=== PATIENT | female | born 2000 | race Caucasian/White ===

== ENCOUNTER 2018-03-01 02:03 | Emergency (ER) | payer OTHER, MEDICAID, SELFPAY ==
[2018-03-01 02:30] VITALS: BP 130/80; PULSE 119; RESP 20; TEMP 36.9; O2SAT 100
--- NOTE | 2018-03-01 02:47 | PC.NURSE ---
Pt has multiple skin lesion in visible areas.
[2018-03-01] MEDS: ACETAMINOPHEN 325 MG TABLET 650 MG PO (03:47)
[2018-03-01] MEDS: AMOXICILLIN/CLAV 875/125 MG 1 TAB PO (03:47)
--- NOTE | 2018-03-01 04:21 | ED_ITS ---
HPI - URI/Sore Throat General Chief Complaint: Upper Respiratory Symptoms Stated Complaint: BAD COUGH, SWELLING ON NECK Time Seen by Provider: 03/01/18 03:33 Source: patient Mode of arrival: ambulatory Limitations: no limitations History of Present Illness HPI Narrative: The patient developed pain and swelling to her chin 2 days ago. She has multiple dry skin lesions with eschar formation on her face. With the swelling, there is no drainage from the site. She has no intraoral swelling or pain. She does complain of left upper dental pain. She has no difficulty opening her mouth or swallowing. She denies associated fever or chills. She tells me that the skin lesions are from anxiety and scratching/ picking. She he has no chronic skin condition. She is currently 6 months . She has no associated chest pain or dyspnea. Related Data Previous Rx's Medication Instructions Recorded sertraline 100 mg tablet 100 mg PO Q DAY #30 tab 07/18/17 amoxicillin-pot clavulanate 1 tab PO Q12H #14 tab 03/01/18 [Augmentin] Allergies Allergy/AdvReac Type Severity Reaction Status Date / Time No Known Drug Allergies Allergy Verified 03/01/18 02:44 Review of Systems Review of Systems All systems reviewed & are unremarkable except as noted in HPI and below Constitutional Denies chills, Denies fever(s), Denies lethargy and Denies weakness Eyes Denies change in vision, Denies eye discharge, Denies irritation and Denies loss of vision ENT Ears, Nose, Mouth, and Throat: Reports as per HPI, Denies change in voice, Reports dental pain, Denies dysphagia, Denies lip swelling, Denies mouth lesions , Denies neck pain and Denies sore throat Cardiovascular Denies chest pain, Denies lightheadedness, Denies palpitations, Denies dyspnea and Denies dyspnea on exertion Respiratory Denies cough, Denies dyspnea, Denies dyspnea on exertion and Denies wheezing Gastrointestinal Gastrointestinal: Denies dysphagia Musculoskeletal Denies neck pain Integumentary/Breasts Reports as per HPI, Denies pruritus, Denies erythema, Denies rash and Reports wounds Neurologic Denies loss of vision and Denies weakness Endocrine Denies palpitations Allergic/Immunologic Denies lip swelling and Denies wheezing [facility] Surgical History Status post delivery (08/17/15) Family History Child Hydrocephaly Mother Age: 42 Fibromyalgia Grandmother Age: 62 Stroke Sister Age: 11 ADHD (attention deficit hyperactivity disorder) Social History Smoking Status: Current every day smoker Exam Initial Vital Signs Initial Vital Signs: Vital Signs Temperature 98.4 F 03/01/18 02:30 Pulse Rate 119 H 03/01/18 02:30 Respiratory Rate 20 03/01/18 02:30 Blood Pressure 130/80 03/01/18 02:30 Pulse Oximetry 100 03/01/18 02:30 Const General: cooperative and well developed Nutritional Appearance: well nourished Orientation: alert, awake, oriented x3 and not confused HENMT Head: normocephalic and other ( Multiple scars on her cheeks, and chin. Submandibular swelling with tenderness. There is slight erythema over the site. There is no induration or fluctuance at the site. There is no pore suggesting as external cyst. . ) Mouth: other ( There is no sublingual tenderness or mass. I cannot express saliva from The sublingual glands. oropharynx is otherwise clear.) Neck Neck: No anterior neck swelling and No lymphadenopathy Resp Effort & Inspection: normal respiratory effort, able to speak in complete sentences, no respiratory distress and no use of accessory muscles Auscultation: clear to auscultation bilaterally, no rales, no rhonchi and no wheezes Cardio Rate: regular rate Rhythm: regular rhythm Heart Sounds: no click, no gallops, no murmurs and no rubs Pulses: normal peripheral pulses Skin General: other ( Multiple skin lesions on her face as noted. Erythema on the chin, at the site of the swelling and discomfort.) Course Orders Ordered: Discontinued Medications Acetaminophen (Tylenol) 650 mg PO NOW ONE Stop: 03/01/18 03:42 Last Admin: 03/01/18 03:47 Dose: 650 mg Amoxicillin/Clavulanate Potassium (Augmentin 875-125 Mg) 1 tab PO NOW ONE Stop: 03/01/18 03:42 Last Admin: 03/01/18 03:47 Dose: 1 tab Vital Signs - 8 hr 03/01/18 02:30 Temperature 98.4 F Pulse Rate 119 H Respiratory Rate 20 Blood Pressure 130/80 Pulse Oximetry 100 MDM - URI/Sore Throat MDM Narrative Medical decision making narrative: Exam is most consistent with cellulitis. There is no induration or fluctuance consistent with an abscess. There is no saliva extracted from the site, that would be consistent with a sublingual salivary gland blockage. Discharge Plan Departure Patient Disposition: Home Clinical Impression: Cellulitis of chin Instructions: DI for Cellulitis -- Adult Activity Restrictions/Additional Instructions: apply warm compresses to the site several times daily until improving. Augmentin 1 tablet twice a day as prescribed. Take Tylenol as needed for pain every 4 hr. If not improving within 48 hr, return to the ER. If the site become significantly worse, more swollen, return to the ER. Prescriptions: New amoxicillin-pot clavulanate [Augmentin] 875-125 mg tablet 1 tab PO Q12H Qty: 14 RF: 0 No Action sertraline [Zoloft] 100 mg tablet 100 mg PO Q DAY Qty: 30 RF: 2
[2018-03-01 04:33] VITALS: BP 129/75; PULSE 124; RESP 18; O2SAT 99
== END 2018-03-01 04:33 | disposition home or self-care (01) ==
PROVIDERS: Emergency Provider Emergency Medicine; PCP Internal Medicine
DX: L03.211 Cellulitis of face (principal)
CPT/HCPCS: 99282; 99283

== ENCOUNTER 2021-09-13 10:24 | Emergency (ER) | payer OTHER, MEDICAID, SELFPAY ==
[2021-09-13 10:39] VITALS: BP 122/76; PULSE 101; RESP 15; TEMP 36.2; O2SAT 100; BMI 19.8
--- NOTE | 2021-09-13 13:01 | ED_ITS ---
HPI - Dental/Oral <STACIE Yepez - Last Filed: 09/13/21 14:38> General Chief complaint: Dental/Oral Stated complaint: possible infected tooth/sinus infection Time Seen by Provider: 09/13/21 12:13 Source: patient Mode of arrival: Ambulatory History of Present Illness HPI Narrative: This is a 21-year-old female who presents to the emergency department complaining of worsening dental and gum infection over the last three weeks. Patient states that she was seen at [facility] in the past and told that she needs extensive oral surgery. She came here for evaluation of infection, states that she has an appointment next month but fears that her mouth is getting worse. She has an active methamphetamine user, also endorses that it zaragoza when she voids. She endorses having a mildly sore throat with oral and gum swelling with pain. She states it is hard to swallow pills and request of liquid medication due to the poor state of health in her mouth. Patient denies any known STDs but states is possible, she states that she feels hot and cold, is financially insecure and food is scarce. Patient denies any recent antibiotics, states that she has been trying to only use liquid food and medicine because it is painful to chew. Related Data Previous Rx's Medication Instructions Recorded sertraline 100 mg tablet (Zoloft) 100 mg PO Q DAY #30 tabs 07/18/17 amoxicillin 600 mg-potassium 7.3 ml PO BID dental infection 7 09/13/21 clavulanate 42.9 mg/5 mL oral days #125 mL suspension (Augmentin ES-) chlorhexidine gluconate 0.12 % 15 ml buccal DAILY gingivitis #473 09/13/21 mouthwash mL naproxen 250 mg tablet 250 mg PO BID PRN pain #14 tabs 09/13/21 Allergies Allergy/AdvReac Type Severity Reaction Status Date / Time No Known Drug Allergies Allergy Verified 09/13/21 10:42 Review of Systems <STACIE Yepez - Last Filed: 09/13/21 14:38> Review of Systems Narrative: General: denies fever, chills Head/Neck: denies headache, neck pain Eyes: denies visual changes, eye pain Mouth: Endorses significant decay, gum infection, dental pain with only partial teeth left Cardio: denies chest pain, palpitations Respiratory: denies shortness of breath, cough GI: denies abdominal pain, nausea, vomiting, or diarrhea : Endorses dysuria, denies hematuria or flank pain MSK: denies new joint pain, muscle weakness or swelling Skin: denies rash, itching or wound Neuro: denies numbness, tingling, dizziness Patient History <STACIE Yepez - Last Filed: 09/13/21 14:38> Surgical History Status post delivery (08/17/15) Family History Child Hydrocephaly Mother Age: 45 Fibromyalgia Grandmother Age: 65 Stroke Sister Age: 14 ADHD (attention deficit hyperactivity disorder) Social History Smoking Status: Current every day smoker Smoking Status: Current every day smoker alcohol intake frequency: holidays/special occasions only Substance Use Type: methamphetamine Exam <STACIE Yepez - Last Filed: 09/13/21 14:38> Narrative Exam Narrative: Independently reviewed vitals signs and nursing notes. General: Awake, alert, nontoxic, no cardiorespiratory distress, afebrile Head/Neck: Atraumatic, neck supple Eyes: EOMI, conjunctiva normal Nose: nares patent, no rhinorrhea Mouth/Throat: moist mucus membranes, posterior pharynx with erythema, significant gingivitis with significant decay, no obvious dental abscesses are visualized, uvula is midline Cardio: Regular rate and rhythm, tachycardic, patient endorses methamphetamine use, no peripheral edema Respiratory: respirations unlabored without wheezing, stridor, or rales. No retractions, hypoxia or tachypnea GI: Abdomen soft, nontender to palpation x4 quadrants, no guarding or rebound tenderness MSK: Moves all extremities, neurovascularly intact, range of motion without deficit Skin: Normal capillary refill, no rash, multiple skin lesions which do not appear infected, knuckles of hands bilaterally are erythematous Neuro: Normal speech and cognition, normal gait Initial Vital Signs Initial Vital Signs: Vital Signs Temperature 97.2 F L 09/13/21 10:39 Pulse Rate 101 H 09/13/21 10:39 Respiratory Rate 15 09/13/21 10:39 Blood Pressure 122/76 09/13/21 10:39 Pulse Oximetry 100 09/13/21 10:39 Oxygen Delivery Method 09/13/21 10:39 <Tiffanie Hawkins DO - Last Filed: 09/15/21 06:51> Initial Vital Signs Initial Vital Signs: Vital Signs Temperature 97.2 F L 09/13/21 10:39 Pulse Rate 101 H 09/13/21 10:39 Respiratory Rate 15 09/13/21 10:39 Blood Pressure 122/76 09/13/21 10:39 Pulse Oximetry 100 09/13/21 10:39 Oxygen Delivery Method 09/13/21 10:39 Course <STACIE Yepez - Last Filed: 09/13/21 14:38> Orders Ordered: Discontinued Medications Ceftriaxone Sodium (Ceftriaxone 1,000 Mg Vial) 500 mg IM NOW ONE Stop: 09/13/21 13:17 Last Admin: 09/13/21 14:09 Dose: 500 mg Documented By: CTS Ketorolac Tromethamine (Ketorolac 30 Mg/Ml Vial) 15 mg IM NOW ONE Stop: 09/13/21 13:17 Last Admin: 09/13/21 14:10 Dose: 15 mg Documented By: CTS Lidocaine HCl (Lidocaine 1% (Pf) 5 Ml) 2.1 ml INJ NOW ONE Stop: 09/13/21 13:17 Last Admin: 09/13/21 14:09 Dose: 2.1 ml Documented By: CTS Vital Signs Vital signs: Vital Signs - 8 hr 09/13/21 10:39 Temperature 97.2 F L Pulse Rate 101 H Respiratory Rate 15 Blood Pressure 122/76 Pulse Oximetry 100 Oxygen Delivery Method Room Air <Tiffanie Hawkins DO - Last Filed: 09/15/21 06:51> Orders Ordered: Discontinued Medications Ceftriaxone Sodium (Ceftriaxone 1,000 Mg Vial) 500 mg IM NOW ONE Stop: 09/13/21 13:17 Last Admin: 09/13/21 14:09 Dose: 500 mg Documented By: CTS Ketorolac Tromethamine (Ketorolac 30 Mg/Ml Vial) 15 mg IM NOW ONE Stop: 09/13/21 13:17 Last Admin: 09/13/21 14:10 Dose: 15 mg Documented By: CTS Lidocaine HCl (Lidocaine 1% (Pf) 5 Ml) 2.1 ml INJ NOW ONE Stop: 09/13/21 13:17 Last Admin: 09/13/21 14:09 Dose: 2.1 ml Documented By: ROWAN Vital Signs Vital signs: Vital Signs - 8 hr 09/13/21 10:39 Temperature 97.2 F L Pulse Rate 101 H Respiratory Rate 15 Blood Pressure 122/76 Pulse Oximetry 100 Oxygen Delivery Method Room Air MDM - Dental/Oral <STACIE Yepez - Last Filed: 09/13/21 14:38> Lab Data Labs: Lab Results 09/13/21 09/13/21 09/13/21 Range/Units 12:53 12:53 12:53 Urine Color Yellow Urine Appearance Clear Urine pH 6.5 (4.5-8.0) Ur Specific [place] 1.020 (1.000-1.035) Urine Protein Trace H (Negative) Urine Glucose (UA) Negative (Negative) g/dL Urine Ketones Negative (NEGATIVE) Urine Occult Blood Trace-lysed (Negative) Urine Nitrate Positive H (Negative) Urine Bilirubin Negative (NEGATIVE) Urine Urobilinogen 0.2 (0.2) E.U./dL Ur Leukocyte Esterase Trace H (NEGATIVE) Urine RBC 0-1/hpf (0-5/HPF) Urine WBC 1-5/hpf (0-5/HPF) Ur Squamous Epith Cells 1-5 /hpf (0-5/HPF) Urine Bacteria Many (>30) H (None) Ur Culture Indicated? Specimen cultured Urine Test Negative (Negative) Ur Chlamydia DNA (PCR) Not detected N gonorrhoeae DNA (PCR) Not detected MDM Narrative Medical decision making narrative: This is a 21-year-old female presents emergency department complaining of dental infection and gum infection for at least three weeks and needing dental extractions. She also endorses dysuria, urinary frequency and urgency without fever. She states that STDs or STIs are possible, she was tested for gonorrhea and chlamydia via urine PCR, this is still pending, patient will call later today to see if this is resulted. I will follow-up on this culture result. UA shows protein, nitrates, leukocyte esterase, bacteria. Urine is pending for culture, Throat culture pending, gram stain shows mixed respiratory rosendo. Patient was given seem a dental clinic contact information, she has an appointment next month but encouraged her to focus a other appointment, she was prescribed chlorhexidine mouthwash, Augmentin b.i.d. for seven days via suspension due to difficulty with pills. Throat swab obtained due to this reason. Patient was given 500 mg IM ceftriaxone for acute cystitis, will discharge home with Augmentin b.i.d. for seven days for dental infection. Patient is appropriate and amenable to discharge home. Vital signs are stable on repeat examination is unremarkable. Patient has been informed of results. Patient has been given strict return to ER precautions for any new or worsening symptoms. Patient understands to follow up closely with outpatient providers as instructed. Patient understands plan and agrees to discharge home. All questions and concerns answered at this time. <Tiffanie Hawkins, - Last Filed: 09/15/21 06:51> Lab Data Labs: Lab Results 09/13/21 09/13/21 09/13/21 Range/Units 12:53 12:53 12:53 Urine Color Yellow Urine Appearance Clear Urine pH 6.5 (4.5-8.0) Ur Specific [place] 1.020 (1.000-1.035) Urine Protein Trace H (Negative) Urine Glucose (UA) Negative (Negative) g/dL Urine Ketones Negative (NEGATIVE) Urine Occult Blood Trace-lysed (Negative) Urine Nitrate Positive H (Negative) Urine Bilirubin Negative (NEGATIVE) Urine Urobilinogen 0.2 (0.2) E.U./dL Ur Leukocyte Esterase Trace H (NEGATIVE) Urine RBC 0-1/hpf (0-5/HPF) Urine WBC 1-5/hpf (0-5/HPF) Ur Squamous Epith Cells 1-5 /hpf (0-5/HPF) Urine Bacteria Many (>30) H (None) Ur Culture Indicated? Specimen cultured Urine Test Negative (Negative) Ur Chlamydia DNA (PCR) Not detected N gonorrhoeae DNA (PCR) Not detected Discharge Plan Departure Patient Disposition: Home Clinical Impression: Gingival disease, Chronic dental infection Acute cystitis Qualifiers: Hematuria presence: with hematuria Qualified Code(s): N30.01 - Acute cystitis with hematuria Instructions: Tooth Decay, Tooth Abscess, DI for Urinary Tract Infection (UTI) Activity Restrictions/Additional Instructions: *You have been diagnosed with dental decay and infection of your gums, as well is a bladder infection. Please go to one of the [facility] dental clinics as soon as possible, start the antibiotics today and continue them for the next seven days. Please call us later today at [phone] and ask about your gonorrhea and chlamydia urine result. I will send a new [facility] if [facility]. Please follow-up with Sarah Muñoz if you have ongoing symptoms when you urinate. I will call in antibiotics for your urine if it is infected. Please wait about 30 minutes before going to the pharmacy. And if you call later and we tell you that your other test result is positive for something I will need to call in another antibiotic for you as well. Stay hydrated, follow up with [facility] to see what type of oral surgeon they can refer you to. [place], [place] ? [place], [place] ? *What to do: *Please continue to take your regular medications as directed. [ x] New medication prescriptions sent to your pharmacy: [ [facility] [place]] [ ] New medication written as a paper prescription [ ] No new medications given *Please follow up with your primary care provider in 2-3 days, call for an appointment. Let them know you were seen in the Emergency Department and that we asked that you be seen for follow-up. We will electronically transmit a record of today's note if your PCP is in our system *If you do not have a primary care provider please contact [phone] to establish care with one of the [facility] primary care providers. *Return to Emergency Department if you should have any new, worsening or concer starla symptoms, such as [fever greater than 101F, chills, worsening pain, persistent vomiting or other bothersome symptoms] Prescriptions: New amoxicillin-pot clavulanate [Augmentin ES-600] 600-42.9 mg/5 mL suspension for reconstitution 7.3 ml PO BID 7 Days Qty: 125 0RF chlorhexidine gluconate 0.12 % mouthwash 15 ml buccal DAILY Qty: 473 0RF naproxen 250 mg tablet 250 mg PO BID PRN (Reason: pain) Qty: 14 0RF Discontinued amoxicillin-pot clavulanate [Augmentin] 875-125 mg tablet 1 tab PO Q12H Qty: 14 0RF No Action sertraline [Zoloft] 100 mg tablet 100 mg PO Q DAY Qty: 30 2RF Referrals: Sarah Muñoz ARNP [Primary Care Provider] - Visit Report Forms: Patient Portal/API <Tiffanie Hawkins DO - Last Filed: 09/15/21 06:51> Cosign ED Attending Richardature Attestation: I was immediately available in the department for consultation. Documentation has been reviewed. I agree with assessment and plan.
[2021-09-13 13:11] LABS: Pregnancy Test Urine Negative (Negative)
[2021-09-13 13:14] LABS: Appearance Urine UA CLEAR; Bilirubin Urine UA NEGATIVE (NEGATIVE); Color Urine UA YELLOW; Glucose Urine UA NEGATIVE (Negative); Ketones Urine UA NEGATIVE (NEGATIVE); Leukocyte Esterase Urine UA TRACE (NEGATIVE); Nitrite Urine UA POSITIVE (Negative); Occult Blood Urine UA TRACE-LYSED (Negative); Protein Urine UA TRACE (Negative); Urobilinogen Urine UA 0.2 E.U./dL (0.2); pH Urine UA 6.5 (4.5-8.0)
--- NOTE | 2021-09-13 13:28 | CM.SWNOTE ---
PEDIATRIC SPEECH THERAPIST Note PEDIATRIC SPEECH THERAPIST receives consult and enters room to meet with patient. Patient is 21 y/o female who presents to ED due to concern for tooth pain and concern for sinus infection. In triage patient endorses concerns for financial, food, transportation and snf insecurity. Patient endorses that she resides in an and receives support from her father. Patient presents to ED with significant other. Patient endorses that she needs support seeking a dentist due to concern for oral surgery needed to pull teeth and have wisdom teeth removed. Patient later states that she has an upcoming dental appt at [facility] in [place]. Patient states that she has not yet applied for food stamps but plans to do so. 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 Patient asks about food gift cards. PEDIATRIC SPEECH THERAPIST calls [facility] about food gift cards and he states that it is an option for current patients but suggests that patient utilize this service from [place] [employer] at [facility] since patient is currently receiving services from [facility]. PEDIATRIC SPEECH THERAPIST reviews this with patient. PEDIATRIC SPEECH THERAPIST provides patient with lists of oral surgeons and Dental providers that accept patient's [employer] insurance. PEDIATRIC SPEECH THERAPIST encourages patient to keep upcoming [facility] appt. ED provider to continue to assess patient for further medical needs as further labs show that patient presents with a UTI. Plan: Patient to d/c to home with dental f/u NICKOLAS Cage
[2021-09-13 13:30] LABS: Bacteria Urine Many (>30); Culture Indicated Urine Specimen Cultured; RBC Urine 0-1/HPF (0-5/HPF); Squamous Epithelial Cell Urine 1-5 /HPF (0-5/HPF); WBC Urine 1-5/HPF (0-5/HPF)
--- NOTE | 2021-09-13 13:42 | PC.NURSE ---
extensive dental caries, broken teeth, missing teeth, gingival swelling. Substance abuse history. arrives today with throat exudate with concern for oropharyngeal STDs. throat cx obtained and sent to lab.
[2021-09-13] MEDS: LIDOCAINE 1% (PF) 5 ML 2.1 ML INJ (14:09)
[2021-09-13] MEDS: cefTRIAXone 1,000 MG VIAL 500 MG IM (14:09)
[2021-09-13] MEDS: KETOROLAC 30 MG/ML VIAL 15 MG IM (14:10)
[2021-09-13 14:40] LABS: Urine N gonorrhoeae NOT DETECTED
[2021-09-13 14:41] LABS: Urine Chlamydia NOT DETECTED
[2021-09-13 14:42] VITALS: BP 116/78; PULSE 99; RESP 16; O2SAT 97
== END 2021-09-13 14:42 | disposition home or self-care (01) ==
PROVIDERS: Emergency Provider Nurse Practitioner Critical Care Medicine; PCP Internal Medicine
DX: K06.9 Disorder of gingiva and edentulous alveolar ridge, unspecified (principal); K04.7 Periapical abscess without sinus; N30.01 Acute cystitis with hematuria
CPT/HCPCS: 81001; 81025; 87070; 87077; 87086; 87186; 87205; 87491; 87591; 96372; 99283; J0696; J1885

== ENCOUNTER 2021-10-29 12:50 | Emergency (ER) | payer OTHER, MEDICAID, SELFPAY ==
[2021-10-29 13:09] VITALS: BP 125/85; PULSE 115; RESP 16; TEMP 36.8; O2SAT 100; BMI 19.8
--- NOTE | 2021-10-29 13:21 | PC.NURSE ---
Pt answered yes to social determinant questions, educated on manager social media and pt declined stating she is currently working with a local casework specialist.
--- NOTE | 2021-10-29 14:06 | ED_ITS ---
HPI - URI/Sore Throat <STACIE Mendoza - Last Filed: 10/29/21 14:12> General Chief Complaint: Upper Respiratory Symptoms Stated Complaint: COVID+ trouble breathing Time Seen by Provider: 10/29/21 13:28 Source: patient Mode of arrival: Ambulatory History of Present Illness HPI Narrative: 21-year-old female, daily smoker, presents to the emergency department with complaints of body aches and fatigue x5 days. Patient tested positive for COVID at home and wants to know if there is anything else she can do. Patient also has a 2.5 cm laceration to left calf that occurred 2 weeks ago and is healing secondarily. Patient was in a house with her boyfriend, who also has COVID. Related Data Previous Rx's Medication Instructions Recorded sertraline 100 mg tablet (Zoloft) 100 mg PO Q DAY #30 tabs 07/18/17 chlorhexidine gluconate 0.12 % 15 ml buccal DAILY gingivitis #473 09/13/21 mouthwash mL naproxen 250 mg tablet 250 mg PO BID PRN pain #14 tabs 09/13/21 Allergies Allergy/AdvReac Type Severity Reaction Status Date / Time No Known Drug Allergies Allergy Verified 10/29/21 13:16 Review of Systems <STACIE Mendoza - Last Filed: 10/29/21 14:12> Review of Systems Narrative: Narrative: GENERAL: Denies chills, fever, sweats. See HPI HEENT: Denies ear pain, sore throat, difficulty swallowing, dizziness. Endorses chronic sinus drainage. RESPIRATORY: Denies dyspnea, wheezing. CARDIOVASCULAR: Denies chest pain, palpitations, edema. GASTROINTESTINAL: Denies nausea, vomiting, abdominal pain, diarrhea, constipation. : Denies dysuria, frequency, incontinence, hematuria, urinary retention, flank pain. MSK: Denies weakness, joint pain, or bony pain. SKIN: Denies rash, skin lesions, or pruritis. NEUROLOGIC: Denies weakness, dizziness, headache, numbness, confusion. PSYCHIATRIC: No concerning psychosocial issues. Patient History <STACIE Mendoza - Last Filed: 10/29/21 14:12> Surgical History Status post delivery (08/17/15) Family History Child Hydrocephaly Mother Age: 45 Fibromyalgia Grandmother Age: 65 Stroke Sister Age: 14 ADHD (attention deficit hyperactivity disorder) Social History Smoking Status: Current every day smoker Smoking Status: Current every day smoker alcohol intake frequency: 0-2 drinks per day Substance Use Type: methamphetamine Exam <STACIE Mendoza - Last Filed: 10/29/21 14:12> Narrative Exam Narrative: Exam Narrative: GENERAL: This is a well-nourished, well-developed patient, in no acute distress HEAD: Atraumatic. Normocephalic. NECK: Trachea midline. No JVD or lymphadenopathy. Nontender. CARDIOVASCULAR: Regular rate and rhythm without murmurs, peripheral pulses intact, cap refill <2 sec. RESPIRATORY: Breath sounds equal and clear bilaterally. No wheezes, rales, or rhonchi. No increased respiratory effort. No accessory muscle use. GASTROINTESTINAL: Abdomen soft, non-tender, nondistended without guarding or rebound. No suprapubic pain. MSK: Moves all extremities. Normal range of motion, no clubbing or edema. Neurovascularly intact. NEURO: A&O x 3. SKIN: 2.5 cm vertical laceration to left calf. Mild redness and swelling surrounding the area. No active drainage, warmth or red streaking. Initial Vital Signs Initial Vital Signs: Vital Signs Temperature 98.2 F 10/29/21 13:09 Pulse Rate 115 H 10/29/21 13:09 Respiratory Rate 16 10/29/21 13:09 Blood Pressure 125/85 10/29/21 13:09 Pulse Oximetry 100 10/29/21 13:09 Oxygen Delivery Method 10/29/21 13:09 Reviewed. Attribute increased heart rate to nervousness and lack of fluid intake. <Tiffanie Hawkins DO - Last Filed: 10/31/21 09:47> Initial Vital Signs Initial Vital Signs: Vital Signs Temperature 98.2 F 10/29/21 13:09 Pulse Rate 115 H 10/29/21 13:09 Respiratory Rate 16 10/29/21 13:09 Blood Pressure 125/85 10/29/21 13:09 Pulse Oximetry 100 08/15/22 13:09 Oxygen Delivery Method 10/29/21 13:09 Course <Boom LawsSTACIE leiva - Last Filed: 10/29/21 14:12> Vital Signs Vital signs: Vital Signs - 8 hr 10/29/21 13:09 Temperature 98.2 F Pulse Rate 115 H Respiratory Rate 16 Blood Pressure 125/85 Pulse Oximetry 100 Oxygen Delivery Method Room Air <Tiffanie DO Shruthi - Last Filed: 10/31/21 09:47> Vital Signs Vital signs: Vital Signs - 8 hr 10/29/21 13:09 Temperature 98.2 F Pulse Rate 115 H Respiratory Rate 16 Blood Pressure 125/85 Pulse Oximetry 100 Oxygen Delivery Method Room Air MDM - URI/Sore Throat <STACIE Mendoza - Last Filed: 10/29/21 14:12> Differential Diagnosis Differential diagnosis: Likely upper respiratory infection MDM Narrative Medical decision making narrative: 21-year-old female that presents to the emergency room with COVID-19. Symptoms are consistent with COVID-19. Patient is out of the window for antiviral treatment. Recommended rest, hydration, [id number]-[id number] medications as needed for comfort. Recommended keeping the wound clean and dry and apply antibiotic ointment twice daily. Discussed plan of care and return precautions with patient, who was agreeable to course of action. Discharge Plan Departure Patient Disposition: Home Clinical Impression: Upper respiratory infection, COVID-19 Instructions: COVID-19 Activity Restrictions/Additional Instructions: *You have been diagnosed with a upper respiratory infection/COVID-19. For your chronic sinus drainage, I recommend daily Claritin and Flonase nasal spray, 1 sprain each nostril up to 2 times daily. As we discussed, you need did stay hydrated and get as much rest as possible. Please follow-up with your family doctor symptoms persist or worsen. You were evaluated in the emergency department (ED) with symptoms concerning for COVID-19. While the diagnosis may feel scary, most cases resolve on their own without hospitalization. Certain high risk people are treated with medications to reduce their risk of serious symptoms. At this time, we feel that you are safe to go home. Steps to take at home to care for yourself: ? Get lots of rest and stay hydrated by drinking plenty of fluids. ? You can take acetaminophen (eg, Tylenol) or ibuprofen (eg, Advil, Motrin) for fevers or body aches. ? If you have questions, call your primary care doctor, contact your local health department, or visit the CDC?s website at gov/coronavirus. ? Speak with your primary care doctor within two weeks to discuss a plan to follow up. How to avoid spreading the virus to others: ? Stay at home, except if seeking medical care. ? Cover your coughs (with a tissue or in your elbow) and avoid touching your face unnecessarily. ? Wash your hands often (using soap and water for 20 seconds) to decrease your risk of infecting others. ? Try to avoid close contact with others in your home, including pets. If possible, use a different bathroom, and sleep in a separate room. If you must be near others, be sure everyone wears a face mask and wash your hands before interacting with them. ? If a test was sent and is positive, your local health department may contact you. Follow their directions about when to go back to work or school. ? If you were not tested, you may stop quarantine 10 days after the start of your symptoms, as long as your fever has been completely gone (without using medications) for at least 24 hours and your other symptoms are improving. ? Vaccination against COVID-19 can reduce your risk of reinfection. If you tested negative for COVID-19, you may get the vaccine as soon as possible. If you tested positive for COVID-19, you should still get a vaccine once allowed by your health department. If you or those around you are concerned about COVID-19, call your primary care doctor for advice about steps to take. Your health system may have specific locations for testing if you are not extremely sick. This lowers the risk that you could catch a virus or pass it on in the ED waiting room. Speak to your doctor or come back to the ED for new or worsening symptoms, such as severe headache, confusion, chest pain, difficulty breathing, or vomiting to the point that you cannot drink fluids. Review medication inserts for side effects and call the ED if you have any questions about the medications or care you received. *What to do: *Please continue to take your regular medications as directed. [ ] New medication prescriptions sent to your pharmacy: [ ] [ ] New medication written as a paper prescription [x ] No new medications given *Please follow up with your primary care provider in 2-3 days, call for an appointment. Let them know you were seen in the Emergency Department and that we ask that you be seen in follow up. We will electronically transmit a record of today's note if your PCP is in our system *If you do not have a primary care provider please contact the [facility] Resource line at [phone]. They will ask some questions about your medical history and help get you set up with a doctor in the community. ? Return to ER if you should have any new, worsening or concerning symptoms, such as worsening pain, severe headache, confusion, chest pain, difficulty breathing, fever greater than 101 F, shaking chills, persistent vomiting to the point that you cannot drink fluids, or other new or worsening symptoms. Prescriptions: No Action sertraline [Zoloft] 100 mg tablet 100 mg PO Q DAY Qty: 30 2RF chlorhexidine gluconate 0.12 % mouthwash 15 ml buccal DAILY Qty: 473 0RF naproxen 250 mg tablet 250 mg PO BID PRN (Reason: pain) Qty: 14 0RF Referrals: Sarah Muñoz ARNP [Primary Care Provider] - Visit Report Forms: Patient Portal/API <Tiffanie Hawkins DO - Last Filed: 10/31/21 09:47> Cosign ED Attending Richardature Attestation: I was immediately available in the department for consultation. Documentation has been reviewed. I agree with assessment and plan.
== END 2021-10-29 13:58 | disposition home or self-care (01) ==
PROVIDERS: Emergency Provider Registered Nurse; PCP Internal Medicine
DX: U07.1 COVID-19 (principal); J06.9 Acute upper respiratory infection, unspecified
CPT/HCPCS: 99282

== ENCOUNTER → 2021-12-04 19:08 | Outpatient (CLI) | payer OTHER, MEDICAID, SELFPAY | PROVIDERS: PCP Internal Medicine; Visit Provider Student in an Organized Health Care Education/Training Program | DX: L02.91 Cutaneous abscess, unspecified (principal) | CPT/HCPCS: 87070; 87075; 87077; 87147; 87186; 87205 ==

== ENCOUNTER 2022-07-26 16:27 | Emergency (ER) | payer OTHER, MEDICAID, SELFPAY ==
[2022-07-26 16:35] VITALS: BP 149/87; PULSE 122; RESP 17; TEMP 36.6; O2SAT 99; BMI 19.8
[2022-07-26] MEDS: TET,DIPH,PERTUSS(ACELL),VAC/PF 0.5 ML SYRINGE IM (16:54)
== END 2022-07-26 16:55 | disposition left against medical advice (07) ==
PROVIDERS: Emergency Provider Emergency Medicine; PCP Internal Medicine
DX: S90.811A Abrasion, right foot, initial encounter (principal); Y28.8XXA Contact with other sharp object, undetermined intent, initial encounter; Z23 Encounter for immunization
CPT/HCPCS: 90471; 99283; 90715

== ENCOUNTER 2022-07-26 23:14 | Emergency (ER) | payer OTHER, MEDICAID, SELFPAY ==
--- NOTE | 2022-07-27 00:55 | PC.NURSE ---
2325 patient not in lobby, per Admitting staff she left and went outside.
== END 2022-07-26 23:25 | disposition left against medical advice (07) ==
PROVIDERS: Emergency Provider Emergency Medicine; PCP Internal Medicine
DX: S91.311A Laceration without foreign body, right foot, initial encounter (principal)

== ENCOUNTER 2023-01-30 13:56 | Emergency (ER) | payer OTHER, MEDICAID, SELFPAY ==
[2023-01-30 14:03] VITALS: BP 113/62; PULSE 128; RESP 20; TEMP 37.7; O2SAT 100; BMI 22.0
[2023-01-30 14:30] VITALS: BP 104/57; PULSE 126; RESP 18; O2SAT 98
--- NOTE | 2023-01-30 14:56 | ED.SKABFB ---
HPI - Skin/Abscess/Foreign Bdy General Chief complaint: Skin/Abscess/Foreign Body Stated complaint: sent by [facility] and has abcess in breast Time Seen by Provider: 01/30/23 14:06 Source: patient Mode of arrival: Ambulatory Limitations: no limitations History of Present Illness HPI narrative: Patient is a 22-year-old female. She is . She is not having any vaginal bleeding, abdominal pain, vaginal discharge. She is here because of a concern of an abscess on her right breast. She went to the walk-in clinic was sent here to the ER. She stated that several days ago she started noticed pain and induration to her right breast. She reports no fevers. No nipple drainage. She does not think she is ever had an abscess that is needed drained in the past. Related Data Home Medications Medication Instructions Recorded Confirmed buprenorphine 8 mg-naloxone 2 mg 2 tab sublingual DAILY 07/26/22 01/30/23 sublingual tablet albuterol sulfate 90 mcg/actuation inhalation 01/30/23 01/30/23 aerosol inhaler ondansetron HCl 4 mg tablet mg PO 01/30/23 01/30/23 Previous Rx's Medication Instructions Recorded cephalexin 500 mg capsule 500 mg PO QID 7 days #28 caps 01/30/23 Allergies Allergy/AdvReac Type Severity Reaction Status Date / Time No Known Drug Allergies Allergy Verified 01/30/23 12:57 Review of Systems Constitutional Constitutional: Reports system reviewed and no additional complaints, except as documented Gastrointestinal Gastrointestinal: Reports system reviewed and no additional complaints, except as documented Integumentary/Breasts Skin/Breast: Reports system reviewed and no additional complaints, except as documented Patient History Surgical History Status post delivery (08/17/15) Family History Child Hydrocephaly Mother Age: 47 Fibromyalgia Grandmother Age: 67 Stroke Sister Age: 16 ADHD (attention deficit hyperactivity disorder) Social History Smoking Status: Current every day smoker Smoking Status: Current every day smoker tobacco type: cigarettes alcohol intake frequency: other Substance Use Type: amphetamines and methamphetamine Exam Initial Vital Signs Initial Vital Signs: Vital Signs Temperature 99.8 F H 01/30/23 14:03 Pulse Rate 128 H 01/30/23 14:03 Respiratory Rate 20 01/30/23 14:03 Blood Pressure 113/62 01/30/23 14:03 Pulse Oximetry 100 01/30/23 14:03 Oxygen Delivery Method Room Air 01/30/23 14:03 Skin Other: Patient has minimal redness in the upper outer quadrant of the right breast. There is induration in this area. There are no vesicles or pustules noted. Procedures Abscess I/D I&D #1: Site: other (Breast) Side (if applicable): right Local Anesthetic: lidocaine 1% and with epi Amount of anesthesia used (mL): 3 Technique: incised with #11 blade Packing used?: none Course Orders Ordered: ED Orders 01/30/23 14:16 Consult to PUBLIC HEALTH REGISTRAR - Windows Software Developer Stat Vital Signs Vital signs: Vital Signs - 8 hr 01/30/23 14:03 Temperature 99.8 F H Pulse Rate 128 H Respiratory Rate 20 Blood Pressure 113/62 Pulse Oximetry 100 Oxygen Delivery Method Room Air MDM - Skin/Abscess/Foreign Bdy MDM Narrative Medical decision making narrative: Bedside ultrasound did show what appeared to be a abscess in the right upper outer quadrant of the breast. There was no nipple discharge. Incision and drainage was made with return of purulent material. No packing was used. Will treat the patient with antibiotics given the small amount of redness around the area and her status. She was given return precautions follow-up instructions. She expressed understanding and agreement. Discharge Plan Departure Patient Disposition: Home Clinical Impression: Abscess Instructions: DI for Skin Abscess Activity Restrictions/Additional Instructions: I do recommend that you take the antibiotics as directed. You can shower like normal. I expect some drainage from the area. Return to the emergency department for worsening symptoms. Prescriptions: New cephalexin 500 mg capsule 500 mg PO QID 7 Days Qty: 28 0RF No Action albuterol sulfate 90 mcg/actuation HFA aerosol inhaler inhalation ondansetron HCl 4 mg tablet PO buprenorphine-naloxone 8-2 mg tablet, sublingual 2 tab SUBLINGUAL DAILY Patient Comments: TAKE 2 TABLETS SUBLINGUAL DAILY Referrals: Sarah Muñoz ARNP [Primary Care Provider] - Stand Alone Forms: Patient Portal/API
[2023-01-30 15:00] VITALS: BP 117/63; PULSE 101; RESP 16; O2SAT 99
[2023-01-30 15:15] VITALS: BP 121/59; PULSE 90; RESP 18; O2SAT 99
[2023-01-30 15:39] VITALS: TEMP 37.5
--- NOTE | 2023-01-30 15:47 | CM.SWNOTE ---
ED ASSOCIATE FINANCIAL PLANNER Note ASSOCIATE FINANCIAL PLANNER receives consult due to patient's concerns for housing, transportation and basic needs. ASSOCIATE FINANCIAL PLANNER is only able to meet with patient briefly upon d/c. ASSOCIATE FINANCIAL PLANNER provides patient with list of housing, food, and basic needs resources. ASSOCIATE FINANCIAL PLANNER encourages patient to go to [facility] for gas cards. ASSOCIATE FINANCIAL PLANNER provides patient with 6 day [address] passes though [employer]. Plan: patient to d/c to home upon medical clearance, patient to f/u with outpatient providers and f/u with resources. Agnes Short, RESIDENT ATHLETIC TRAINER
== END 2023-01-30 15:39 | disposition home or self-care (01) ==
PROVIDERS: Emergency Provider Emergency Medicine; PCP Internal Medicine
DX: O91.119 Abscess of breast associated with pregnancy, unspecified trimester (principal); Z3A.00 Weeks of gestation of pregnancy not specified
CPT/HCPCS: 10060; 99281; 99283

== ENCOUNTER 2023-07-20 10:30 | Emergency (ER) | payer OTHER, MEDICAID, SELFPAY ==
[2023-07-20 10:35] VITALS: PULSE 86; O2SAT 100
[2023-07-20 10:37] VITALS: BP 139/81; PULSE 83; RESP 18; TEMP 37.2; O2SAT 98; BMI 22.0
--- NOTE | 2023-07-20 10:57 | ED_ITS ---
HPI - Headache <Stephen Cunningham PA-C - Last Filed: 07/20/23 11:56> General Chief Complaint: Headache Stated Complaint: having migraines affecting vison and work life Time Seen by Provider: 07/20/23 10:55 Mode of arrival: Ambulatory History of Present Illness HPI Narrative: This is a 23-year-old female presents emergency department due to a migraine. She states that she has been having migraines off and on since she stopped using meth about 6 months ago. She states that with the migraines comes some visual changes such as ?waviness? and some flashing lights. Denies any facial drooping, slurred speech, weakness, or any other concerning signs or symptoms. She was not taking anything for the pain. Related Data Home Medications Medication Instructions Recorded Confirmed buprenorphine 8 mg-naloxone 2 mg 12 mg sublingual DAILY 07/20/23 07/20/23 sublingual film (Suboxone) Allergies Allergy/AdvReac Type Severity Reaction Status Date / Time No Known Drug Allergies Allergy Verified 07/20/23 10:46 Review of Systems <Stephen Cunningham PA-C - Last Filed: 07/20/23 11:56> Review of Systems Narrative: GENERAL: Denies chills, fatigue, malaise, fever, sweats. HEENT: Denies sinus pain, ear pain, sore throat, difficulty swallowing, dizziness. RESPIRATORY: Denies dyspnea, cough, wheezing, hemoptysis, sputum. CARDIOVASCULAR: Denies chest pain, palpitations, orthopnea, edema, GASTROINTESTINAL: Denies nausea, vomiting, abdominal pain, diarrhea, constipation, melena. : Denies dysuria, frequency, incontinence, hematuria, urinary retention. MUSCULOSKELETAL: denies weakness, joint pain, or bony pain SKIN: Denies rash, skin lesions, or other NEUROLOGIC: Reports headache and visual changes Denies weakness, , numbness, change in speech, confusion, seizures, incoordination. PSYCHIATRIC: No concerning psychosocial issues. 12 point review of systems is negative except for those stated above Patient History <Stephen Cunningham PA-C - Last Filed: 07/20/23 11:56> Medical History (Updated 07/20/23 @ 11:09 by Stephen Cunningham PA-C) Painful intercourse Opioid use disorder, mild, in sustained remission Surgical History Status post delivery (08/17/15) Family History Child Hydrocephaly Mother Age: 47 Fibromyalgia Grandmother Age: 67 Stroke Sister Age: 16 ADHD (attention deficit hyperactivity disorder) Social History Smoking Status: Current every day smoker Smoking Status: Current every day smoker tobacco type: cigarettes alcohol intake frequency: other Substance Use Type: former substance user, amphetamines, opiates and methamphetamine Exam <Stephen Cunningham PA-C - Last Filed: 07/20/23 11:56> Narrative Exam Narrative: GENERAL: Well-developed patient, in mild distress. HEAD: Atraumatic. Normocephalic. EYES: Pupils equal round and reactive. Extraocular motions intact. No scleral icterus. No injection or drainage. ENT: Nose without bleeding, purulent drainage. Throat without erythema, tonsillar hypertrophy or exudate. Airway patent. NECK: Trachea midline. Non tender EXTREMITIES: No edema or joint tenderness. NEURO: AOx3. Cranial nerves 2-12 intact. SKIN: No rash or erythema of visible areas Initial Vital Signs Initial Vital Signs: Vital Signs Pulse Rate 86 07/20/23 10:35 Pulse Oximetry 100 07/20/23 10:35 <Tiffanie Hawkins DO - Last Filed: 07/20/23 15:41> Initial Vital Signs Initial Vital Signs: Vital Signs Pulse Rate 86 07/20/23 10:35 Pulse Oximetry 100 07/20/23 10:35 Course <Stephen Cunningham PA-C - Last Filed: 07/20/23 11:56> Orders Ordered: Discontinued Medications Dexamethasone (Dexamethasone 10 Mg/Ml Vial) 10 mg IV NOW ONE Stop: 07/20/23 11:12 Last Admin: 07/20/23 11:20 Dose: 10 mg Documented By: GAURAV Diphenhydramine HCl (Diphenhydramine 50 Mg/Ml Vial) 25 mg IV NOW ONE Stop: 07/20/23 11:05 Last Admin: 07/20/23 11:20 Dose: 25 mg Documented By: GAURAV Sodium Chloride (Normal Saline 0.9%) 1,000 mls @ 1,000 mls/hr IV BOLUS ONE Stop: 07/20/23 12:03 Last Admin: 07/20/23 11:13 Dose: 1,000 mls/hr Documented By: GAURAV Ibuprofen (Ibuprofen 400 Mg Tablet) 400 mg PO NOW ONE Stop: 07/20/23 11:15 Last Admin: 07/20/23 11:19 Dose: 400 mg Documented By: GAURAV Ketorolac Tromethamine (Ketorolac 30 Mg/Ml Vial) 15 mg IV NOW ONE Stop: 07/20/23 11:05 Last Admin: 07/20/23 12:09 Dose: Not Given Documented By: SANTANA Prochlorperazine (Prochlorperazine 10 Mg/2 Ml Vial) 10 mg IV NOW ONE Stop: 07/20/23 11:05 Last Admin: 07/20/23 12:09 Dose: Not Given Documented By: SANTANA Vital Signs Vital signs: Vital Signs - 8 hr 07/20/23 10:35 07/20/23 10:37 07/20/23 11:00 Temperature 98.9 F Pulse Rate 86 83 Respiratory Rate 18 Blood Pressure 139/81 127/80 Pulse Oximetry 100 98 Oxygen Delivery Method Room Air 07/20/23 11:00 07/20/23 11:30 07/20/23 12:00 Temperature Pulse Rate 77 66 56 L Respiratory Rate Blood Pressure Pulse Oximetry 98 95 100 Oxygen Delivery Method 07/20/23 12:17 Temperature Pulse Rate 75 Respiratory Rate 18 Blood Pressure 111/80 Pulse Oximetry 98 Oxygen Delivery Method Room Air <Tiffanie Hawkins DO - Last Filed: 07/20/23 15:41> Orders Ordered: Discontinued Medications Dexamethasone (Dexamethasone 10 Mg/Ml Vial) 10 mg IV NOW ONE Stop: 07/20/23 11:12 Last Admin: 07/20/23 11:20 Dose: 10 mg Documented By: GAURAV Diphenhydramine HCl (Diphenhydramine 50 Mg/Ml Vial) 25 mg IV NOW ONE Stop: 07/20/23 11:05 Last Admin: 07/20/23 11:20 Dose: 25 mg Documented By: GAURAV Sodium Chloride (Normal Saline 0.9%) 1,000 mls @ 1,000 mls/hr IV BOLUS ONE Stop: 07/20/23 12:03 Last Admin: 07/20/23 11:13 Dose: 1,000 mls/hr Documented By: GAURAV Ibuprofen (Ibuprofen 400 Mg Tablet) 400 mg PO NOW ONE Stop: 07/20/23 11:15 Last Admin: 07/20/23 11:19 Dose: 400 mg Documented By: GAURAV Ketorolac Tromethamine (Ketorolac 30 Mg/Ml Vial) 15 mg IV NOW ONE Stop: 07/20/23 11:05 Last Admin: 07/20/23 12:09 Dose: Not Given Documented By: SANTANA Prochlorperazine (Prochlorperazine 10 Mg/2 Ml Vial) 10 mg IV NOW ONE Stop: 07/20/23 11:05 Last Admin: 07/20/23 12:09 Dose: Not Given Documented By: SANTANA Vital Signs Vital signs: Vital Signs - 8 hr 07/20/23 10:35 07/20/23 10:37 07/20/23 11:00 Temperature 98.9 F Pulse Rate 86 83 Respiratory Rate 18 Blood Pressure 139/81 127/80 Pulse Oximetry 100 98 Oxygen Delivery Method Room Air 07/20/23 11:00 07/20/23 11:30 07/20/23 12:00 Temperature Pulse Rate 77 66 56 L Respiratory Rate Blood Pressure Pulse Oximetry 98 95 100 Oxygen Delivery Method 07/20/23 12:17 Temperature Pulse Rate 75 Respiratory Rate 18 Blood Pressure 111/80 Pulse Oximetry 98 Oxygen Delivery Method Room Air MDM - Headache <Stephen Cunningham PA-C - Last Filed: 07/20/23 11:56> MDM Narrative Medical decision making narrative: ED course: This is a 23-year-old female presents to the emergency department due to suspected migraine with visual aura. She had a reassuring neuro exam. Patient was . We will be given Benadryl and Decadron and 1 L normal saline for migraine control.. She was a primary care provider if I recommended she follow up with the for long-term migraine management. No concerning symptoms concerning for any kind of intracranial bleed. CC: Migraine Complicating co-morbidities: Prior history of methamphetamine use Data collected from: Previous notes Medical records reviewed: Patient was last seen here about 6 months ago due to a abscess in the breast. She was at that time. Differential considered, but not limited to: Ischemic stroke, subarachnoid hemorrhage, migraine with aura Exam documented above, pertinent findings include: Reassuring neuro exam, no deficits noted Lab Test results independently reviewed as above. Pertinent findings: None obtained Imaging studies independently reviewed: None obtained Scores Used: None MIPS Elements: None Consultations: None Treatments: IV Benadryl, Decadron, normal saline, ibuprofen Re-evaluations: Patient felt better after treatment Discussion: Discussed plan with the patient was comfortable with the plan Diagnosis: Migraine with aura Disposition: see below, along with detailed discharge instructions that have been reviewed with patient as well as indications for ED re-evaluation and additional outpatient follow up Discharge Plan Departure Patient Disposition: Home Clinical Impression: Migraine with aura Instructions: DI for Migraine Activity Restrictions/Additional Instructions: Thank you for coming to the [facility] Emergency Department today. As we discussed I suspect you are having a migraine with aura. I do not believe this is any kind of intracranial bleed as we discussed. Please take ibuprofen the next time you are having the migraine or headache. I do recommend he follow up with the primary care provider for long-term management of the migraines. I suspect the visual changes you are having something called: ?aura?. Which can be associated with migraines. Please return to the emergency department if you develop any slurred speech, weakness in your extremities, or any other concerning signs or symptoms. I hope you feel better soon. Please follow up with your primary care provider within a week if your symptoms continue. If you do not have a primary care provider please contact the [facility] Resource line at [phone]. They will ask some questions about your medical history and help you get set up with a provider in the community. Prescriptions: No Action buprenorphine-naloxone [Suboxone] 8-2 mg film 12 mg sublingual DAILY Referrals: Ailyn Mills MD [Primary Care Provider] - Stand Alone Forms: Patient Portal/API ED Sign-out <Tiffanie Hawkins DO - Last Filed: 07/20/23 15:41> Cosign ED Attending Richardature Attestation: I was available for consultation.
[2023-07-20 11:00] VITALS: BP 127/80; PULSE 77; O2SAT 98
[2023-07-20] MEDS: SODIUM CHLORIDE 0.9% 1,000 ML 1000 ML IV (11:13)
[2023-07-20] MEDS: IBUPROFEN 400 MG TABLET PO (11:19)
[2023-07-20] MEDS: DEXAMETHASONE 10 MG/ML VIAL IV (11:20)
[2023-07-20] MEDS: diphenhydrAMINE 50 MG/ML VIAL 25 MG IV (11:20)
[2023-07-20 11:30] VITALS: PULSE 66; O2SAT 95
[2023-07-20 12:00] VITALS: PULSE 56; O2SAT 100
--- NOTE | 2023-07-20 12:10 | PC.NURSE ---
Patient was evaluated, treated, and discharged by provider prior to nursing assessment.
[2023-07-20 12:17] VITALS: BP 111/80; PULSE 75; RESP 18; O2SAT 98
== END 2023-07-20 12:21 | disposition home or self-care (01) ==
PROVIDERS: Emergency Provider Physician Assistant Medical; PCP Family Medicine
DX: G43.109 Migraine with aura, not intractable, without status migrainosus (principal)
CPT/HCPCS: 96374; 96375; 99284; J1100; J1200